=== PATIENT | female | born 1960 | race Caucasian/White ===

== ENCOUNTER 2017-09-19 09:04 | Emergency (ER) | payer BC, MEDICAID, MEDICARE, OTHER ==
[2017-09-19] MEDS: MORPHINE 4 MG/ML 1ML VIAL/SYRINGE (J2270) IM (09:48)
[2017-09-19] MEDS: ONDANSETRON 4 MG ORAL DISINTEGRATING TAB (Q0162 PER 1MG) PO ×2 (09:48→13:01)
[2017-09-19] MEDS: LIDOCAINE 1% MDV 20ML VIAL SC (10:15)
[2017-09-19] MEDS ORDERED: HYDROMORPHONE HCL 0.5 MG/ 0.5 ML SYRINGE (J1170 PER 1) IV (10:45)
[2017-09-19] MEDS: NORCO, ANEXSIA 5/325MG TABLET (HYDROcodone/ACETAMINOPHEN) PO (13:01)
== END 2017-09-19 13:27 | disposition home or self-care (01) ==
LOC: M ED 09:04
DX: S52.531A Colles' fracture of right radius, initial encounter for closed fracture (principal); W01.0XXA Fall on same level from slipping, tripping and stumbling without subsequent striking against object, initial encounter; Y92.098 Other place in other non-institutional residence as the place of occurrence of the external cause; F32.9 Major depressive disorder, single episode, unspecified; F41.9 Anxiety disorder, unspecified; Z87.891 Personal history of nicotine dependence; Z88.2 Allergy status to sulfonamides; Z79.899 Other long term (current) drug therapy
CPT/HCPCS: J2270

== ENCOUNTER 2017-10-02 12:31 | Day surgery (SDC) | payer BC ==
[2017-10-02] MEDS ORDERED: fentaNYL 250 MCG/5 ML INJECTION (J3010) As Ordered (13:54)
[2017-10-02] MEDS ORDERED: ONDANSETRON 4MG/2ML VIAL (J2405) As Ordered (13:54)
[2017-10-02] MEDS ORDERED: PROPOFOL 200 MG/20 ML VIAL As Ordered (13:54)
[2017-10-02] MEDS ORDERED: dexameTHASONE 4 MG/ML 1ML VIAL (J1100) As Ordered (13:54)
[2017-10-02] MEDS ORDERED: LIDOCAINE 2% INJ 100 MG/5 ML SDV (FOR ANES.) As Ordered (13:54)
[2017-10-02] MEDS ORDERED: MIDAZOLAM INJ 2 MG/2 ML VIAL (J2250) As Ordered (13:54)
[2017-10-02] MEDS ORDERED: METOCLOPRAMIDE INJ 10MG/2ML VIAL (J2765) As Ordered (15:34)
[2017-10-02] MEDS ORDERED: HYDROmorphone HCL 2 MG/ML 1ML VIAL (J1170) As Ordered (15:38)
[2017-10-02] MEDS: ceFAZolin 1GM INJ (J0690 PER 500MG) As Ordered (15:39)
[2017-10-02] MEDS ORDERED: ePHEDrine SULFATE 25 MG/5 ML(5MG/ML) SYRINGE As Ordered (15:43)
[2017-10-02] MEDS ORDERED: LR 1,000 ML IV (17:30)
[2017-10-02] MEDS ORDERED: ONDANSETRON 4MG/2ML VIAL (J2405) IV (17:30)
[2017-10-02] MEDS ORDERED: fentaNYL 100 MCG/2 ML INJECTION (J3010) IV (17:30)
[2017-10-02] MEDS: LR 1,000 ML IV (17:30)
[2017-10-02] MEDS ORDERED: NORCO, ANEXSIA 5/325MG TABLET (HYDROcodone/ACETAMINOPHEN) PO (17:30)
[2017-10-02] MEDS ORDERED: MORPHINE 4 MG/ML 1ML VIAL/SYRINGE (J2270) IV (17:30)
[2017-10-02] MEDS: NORCO, ANEXSIA 5/325MG TABLET (HYDROcodone/ACETAMINOPHEN) PO ×2 (17:37→21:10)
[2017-10-03] MEDS: NORCO, ANEXSIA 5/325MG TABLET (HYDROcodone/ACETAMINOPHEN) PO ×2 (03:14→07:25)
[2017-10-03] MEDS: LR 1,000 ML IV (06:00)
== END 2017-10-03 09:22 | disposition home or self-care (01) ==
LOC: M SDC 12:31 → M PED 19:00
DX: S52.591A Other fractures of lower end of right radius, initial encounter for closed fracture (principal); W19.XXXA Unspecified fall, initial encounter; Y93.89 Activity, other specified; Y92.89 Other specified places as the place of occurrence of the external cause; Y99.8 Other external cause status; F41.9 Anxiety disorder, unspecified; E66.9 Obesity, unspecified; Z68.38 Body mass index [BMI] 38.0-38.9, adult; Z88.2 Allergy status to sulfonamides; Z86.59 Personal history of other mental and behavioral disorders; Z87.891 Personal history of nicotine dependence; Z98.84 Bariatric surgery status
CPT/HCPCS: 25607

== ENCOUNTER → 2019-11-09 | Outpatient (REF) | payer BC ==
[~2019-11-09] MED LIST: ESCI20TA; HYDR-3713 PO; HYDR-3715 PO; IBUP200T45 PO; VITA500C24 PO; VITATAB11 PO
[2019-11-09 17:20] LABS: FERRITIN 31 NG/ML (8-252); IRON (FE) 148 UG/DL (50-170)
[2019-11-09 17:26] LABS: FOLATE > 24.0 NG/ML; VITAMIN B12 LEVEL 1019 PG/ML
[2019-11-14 00:07] LABS: VITAMIN A, RETINOL LEVEL 35.4 ug/dL (20.1-62.0); VITAMIN B1 LEVEL WHOLE BLOOD 137.3 nmol/L (66.5-200.0)
== END ==
LOC: M LAB REF 16:23
PROVIDERS: ATTEND Nurse Practitioner Adult Health
DX: Z98.84 Bariatric surgery status (principal)

== ENCOUNTER → 2020-02-21 | Outpatient (CLI) | payer SELFPAY | LOC: M LABSMTC 10:29 | PROVIDERS: ATTEND Pediatrics | DX: Z20.828 Contact with and (suspected) exposure to other viral communicable diseases (principal) ==

== ENCOUNTER → 2020-03-14 | Outpatient (CLI) | payer SELFPAY | LOC: M LABSMTC 09:44 | PROVIDERS: ATTEND Pediatrics | DX: Z20.822 Contact with and (suspected) exposure to COVID-19 (principal) ==

== ENCOUNTER → 2020-04-20 | Outpatient (CLI) | payer BC ==
[~2020-04-20] MED LIST changes: -ESCI20TA; +ESCI20TA16; +FLUO20CA20 PO; +VITMTA PO
== END ==
LOC: M LABSMTC 10:34
PROVIDERS: ATTEND Anesthesiology
DX: Z01.812 Encounter for preprocedural laboratory examination (principal); Z20.822 Contact with and (suspected) exposure to COVID-19

== ENCOUNTER 2020-04-25 07:53 | Day surgery (SDC) | payer BC ==
[~2020-04-25] VITALS: Ht 154.9 cm; Wt 97.5 kg
[~2020-04-25 07:53] MED LIST changes: +LIDOCAINE 2% 100MG/5ML SDV (FOR ANES.) As Ordered ONE; +NS 1,000 ML IV ONE; +propofoL 200 MG/20 ML VIAL As Ordered ONE
[2020-04-25] MEDS ORDERED: ASPI81TA26 PO (08:26)
--- OUTSIDE RECORDS SUMMARY | 2020-04-25 08:58 | CCD | Continuity of Care Document ---
Author Author Bola Anne Organization Unknown Address [address] [place] [address] [address] [place] [address] Phone [phone] Care Team Providers Care Manager Floral Name Role Phone Earnestine Castillo AUTM [phone] Problems Active Problems Provider Date Pure hypercholesterolemia Chapis Edgar FNP Onset: 012 Renal failure syndrome Chapis Edgar FNP Onset: 04/26/2011 Atypical glandular cells on cervical Papanicolaou smear Chapis Clement FNP Onset: 04/26/2011 Asthma without status asthmaticus Chapis Edgar FNP Onset: 04/26/2011 Essential hypertension Chapis Edgar FNP Onset: 04/26/2011 Iron deficiency anemia Chapis Edgar FNP Onset: 04/26/2011 Osteoarthritis Chapis Edgar FNP Onset: 04/26/2011 Lyme disease Chapis Edgar FNP Onset: 04/26/2011 Bariatric Surgery Status hCapis Edgar FNP Onset: 04/26/19 12 Herpes simplex without complication Chapis Edgar FNP Onse t: 04/26/2011 Electrocardiogram abnormal Heide Little D.O. Onset: 04/26/2011 Amenorrhea Chapis Edgar FNP Onset: 04/26/2011 Depressive disorder Chapis Edgar FNP Onset: 04/26/2011 Hyperkalemia Chapis Edgar FNP Onset: 04/26/2011 Social History Type Date Description Comments Sex Unknown ETOH Use Currently consumes alcohol occas ionally Tobacco Use Start: Unknown End: Unknown Patient is a former smoker X 5 YRS 1 PACK A DAY Allergies, Adverse Reactions, Alerts Active Allergies Reaction Severity Comments Date Sulfa Rash Lips Swell 01/18/2008 Medications Active Medications SIG Qnty Indications Ordering Provide r Date Albuterol Sulfate HFA 108(90Base) mcg/Act Aerosol 2 puffs four times a day as needed 25.5gm [facility] CBD Salve apply prn [facility]25 Fluoxetine HCL 20mg Capsules 1 by mouth every day 30caps Earnestine Padron More [facility] 07/26/2019 Multivitamin Adult Chewtabs 2 by mouth bid [facility] 11/02/2018 Vitamin D3 2000Unit Capsules 1 by mouth bid [facility] 11/02/2018 Shingrix 50mcg/0.5ML Suspension Re c administer at pharmacy 1units [facility] 11/02 Calcium 500 +D [id number] Tabl ets 1/2 tab po bid Chapis Edgar FNP 10/13/2015 T83-[id number] 1mg Chewtabs 1 po qd [facility]13/2015 Aspirin 81mg Tablets 1 by mouth every day Chapis Edgar FNP 10/13/2015 Electrodes use as directed for TENS unit 2PKS Chapis Edgar FNP 01/05/2014 TENS Unit to low back as directed for leg pain 1units Chapis Edgar FNP 01/04/2014 Ibuprofen 200mg Capsules 1 po qhs prn Chapis Edgar FNP 11/25/2011 Immunizations CPT Code Status Date Vaccine Lot # U-[id number] Given 11/09/2019 Influenza,Unspecified 61553 Given 12/30/2018 Shingrix Zoster Vaccine (HZV), Recombinant, Subunit, Adjuvanted 01942 Given 02/05/2010 Influenza Virus Vaccine [id number] Refused 12/24/2010 Fluvirin Virus Vaccine Vital Signs Date Vital Result Comment 02/08/2020 7:48am BP Systolic 130 mmHg BP Diastolic 84 mmHg Heart Rate 82 /min Height 61 inches 5'1" Weight 216.00 lb O2 % BldC Oximetry 98 % BMI (Body Mass Index) 40.8 kg/m2 11/09/2019 8:03am BP Systolic 124 mmHg BP Diastolic 78 mmHg Heart Rate 66 /min Height 61 inches 5'1" Weight 215.00 lb O2 % BldC Oximetry 95 % BMI (Body Mass Index) 40.6 kg/m2 Results Test Acquired Date Facility Test Result H/L Range Note Pap HPV High Risk 02/08/2020 [facility] [place] Diagnosis: See Comment: 1 Specimen adequacy: See Comment: 2 Clinician provided Icd10: See Comment: 3 Performed by: See Comment: 4 . . Note: See Comment: 5 Test Methodology: See Comment: 6 HPV, high-risk Negative Negative 7 Laboratory test finding 02/08/2020 [facility] [place] PDF [id number] SEE IMAGE Laboratory test finding 11/09/2019 [facility] [address] [place] [address] [phone] Vitamin A, Retinol Level 35.4 g/dL Normal 20.1-6 2.0 8 Vitamin B1 Level Whole Blood 137.3 nmol/L Normal 66.5-200.0 9 Iron (Fe) 148 g/dL Normal 50-170 Ferritin 31 NG/ML Normal 8-252 Vitamin B12 & Folate 11/09/2019 [facility] [address] [place] [address] [phone] Vitamin B12 Level 1019 pg/mL Normal 10 Folate > 24.0 NG/ML Normal 11 Laboratory test finding 11/09/2019 [place] [facility] chirstina garcia Product Marketing Specialist: Dr Pillo [place] [id number] [phone] Thyroid Stimulating Hormone 4.58 uIU/mL High 0.3 6 - 3.74 Laboratory test finding 11/09/2019 [place] [facility] christina garcia Product Marketing Specialist: Dr Pillo [place] [id number] [phone] T4 Free 0.91 ng/dL 0.76 - 1.46 A1c 11/09/2019 [place] christina Marshall Product Marketing Specialist: [place] [address] [phone] Hba1c 5.7 g/dL High 4.8 - 5.6 12 Est Avg Glucose 117 mg/dL High 60 - 110 Complete Blood Count 11/09/2019 [place] [facility] Product Marketing Specialist: [place] [address] [phone] WBC 4.1 x10*3/UL 4.1 - 10.9 RBC 4.48 x10*6/UL 4.20 - 6.30 Hemoglobin 12.8 g/dL 12.0 - 18.0 Hematocrit 37.6 % 37.0 - 51.0 MCV 84.0 fL 80.0 - 97.0 MCH 28.7 pg 26.0 - 32.0 MCHC 34.1 g/dL 31.0 - 38.0 RDW 12.9 % 11.6 - 13.7 PLT 162 x10*3/UL 140 - 440 MPV 10.1 FL 7.8 - 11.0 Lymph % 37.1 % 10.0 - 58.5 Mid % 7.2 % 1.7 - 9.3 Neut % 55.7 % 37.0 - 92.0 Lymph # 1.5 x10*3/UL 0.6 - 4.1 Mid # 0.3 x10*3/UL 0.1 - 0.6 Neut # 2.3 x10*3/UL 2.0 - 7.8 Comprehensive Chem Profile 11/09/2019 [facility] Product Marketing Specialist: [place] [address] [phone] Glucose 103 mg/dL High 74 - 99 13 BUN 13 mg/dL 7 - 18 Creatinine 0.8 mg/dL 0.6 - 1.3 Sodium 143 mEq/L 136 - 145 Potassium 3.8 mEq/L 3.5 - 5.1 Chloride 104 mEq/L 98 - 107 Carbon Dioxide 29 mEq/L 21 - 32 Calcium 8.6 mg/dL 8.5 - 10.1 Alk. Phosphatase 93 mg/dL 46 - 116 Total Bilirubin 0.5 mg/dL 0.2 - 1.0 Ast (Sgot) 20 U/L 15 - 37 Alt (SGPT) 21 U/L 12 - 78 Albumin 3.5 g/dL 3.4 - 5.0 Total Protein 6.7 g/dL 6.4 - 8.2 A/G Ratio 1.09 CALC 1.00 - 1.90 GFR >= 60 mL/min >60 GFR >= 60 mL/min >60 14 Lipid Profile 11/09/2019 [facility] Product Marketing Specialist: [place] [address] [phone] Cholesterol 234 mg/dL High 131 - 200 Triglycerides 92 mg/dL 30 - 150 HDL Cholesterol 100 mg/dL High 35 - 60 LDL (Calculated) 116 CALC 50 - 159 Laboratory test finding 11/09/2019 [place] [facility] Product Marketing Specialist: [place] [address] [phone] Vitamin D 25-Hydroxy 33.8 24.0 - 80.0 15 1 NEGATIVE FOR INTRAEPITHELIAL LESION OR MALIGNANCY. 2 Satisfactory for evaluation. Endocervical and/or squamous metaplastic cells (endocervical component) are present. 3 N95.9 4 Bela Houser Cytotechnolo wade (ASCP) 5 The Pap smear is a screening test designed to aid in the detection of premalignant and malignant conditions of the uterine cervix. It is not a diagnostic procedure and should not be used as the sole means of detecting cervical cancer. Both false-positive and false-negative reports do occur. 6 This liquid based ThinPrep(R ) pap test was screened with the use of an image guided system. 7 This nucleic acid amplificat ion high-risk HPV test detects thirteen high-risk types (16,18,31,33,35,39,45,51,52,56,58,59,68) without differentiation. EFFECTIVE MARCH 13, 2020 THIS TEST WILL BE MADE NON-ORDERABLE. SEE [facility] DIRECTORY OF SERVICES FOR ALTERNATIVES TO THE HIGH RISK HPV TEST. ANY PROFILE THAT INCLUDES THIS TEST WILL ALSO BE MADE NON-ORDERABLE. 8 Reference intervals for mora min A determined from [facility] internal studies. Individuals with vitamin A less than 20 ug/dL are considered vitamin A deficient and those with serum concentrations less than 10 ug/dL are considered severely deficient. . This test was developed and its performance characteristics determined by [facility]. It has not been cleared or approved by the Food and Drug Administration. 9 Performed at: [address] [id number] Product Marketing Specialist: Duglas Easton MD, Phone: [phone] VITAMIN B12 NORMAL RANGE NORMAL 247 - 911 PG/ML INDETERMINATE 211 - 246 PG/ML DEFICIENT LESS THAN 211 PG/ML 11 FOLATE NORMAL RANGE NORMAL GREATER THAN 5.4 NG/ML INDETERMINATE 3.4-5.4 NG/ML DEFICIENT LESS THAN 3.4 NG/ML 12 Lab Result Notes: Pre-Diabetes 5.7 - 6.4 % Diabetes = or > 6.5% 13 100-125 mg/dL PRE-DIABET ES/FASTING >126 mg/dL DIABETES/FASTING 14 CHRONIC KIDNEY DISEASE STAGI NG PER NKF STAGE I & II GFR >= 60 NORMAL TO MILDLY DECREASED STAGE III GFR 30-59 MODERATELY DECREASED STAGE IV GFR 15-29 SEVERELY DECREASED STAGE V GFR <15 VERY LITTLE GFR LEFT ESRD GFR <15 ON BLEACH BOILER PACKER 15 This test was performed Embrane Vitamin D immunoassay kit. Values obtained with different assay methods should not be used interchangeably. Procedures Date Code Description Status 12/14/2019 [id number] Mammogram Completed 11/24/2018 [id number] Mammogram Completed 11/18/2017 [id number] Bone Mineral Density Test Comple elsa 11/18/2017 [id number] Mammogram Completed 12/22/2013 [id number] Mammogram Completed 10/29/2010 [id number] Colonoscopy Completed 05/04/2008 [id number] Mammogram Completed Medical Devices Description No Information Available Encounters Type Date Location Provider Dx Diagnosis Office Visit 02/08/2020 8:00a [facility] 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 Earnestine Freed ne, BAKER PASTRY Z00.00 Encntr for general adult medical exam w/ o abnormal findings I10 Essential (primary) hyperten wei F34.1 Dysthymic disorder F41.9 Anxiety disorder, unspecifie d R73.03 Prediabetes E78.00 Pure hypercholesterolemia, u nspecified J45.20 Mild intermittent asthma, un complicated E66.01 Morbid (severe) obesity due to excess calories Z68.41 Body mass index (BMI) 40.0-4 4.9, adult Z98.84 Bariatric surgery status E55.9 Vitamin D deficiency, unspec ified Assessments Date Code Description Provider 02/08/2020 Z01.419 Encounter for gyneco logical examination (general) (routine) without abnormal findings Earnestine Gagnon [facility] 02/08/2020 Z12.72 Encounter for screening for john gnant neoplasm of vagina Earnestine Gagnon [facility] 02/08/2020 I10 Essential (primary) hypertension Earnestine Gagnon [facility] 02/08/2020 R73.03 Prediabetes Earnestine Gagnon, [facility] 11/09/2019 Z00.00 Encounter for genera l adult medical examination without abnormal findings Earnestine Gagnon [facility] 11/09/2019 I10 Essential (primary) hypertension Earnestine Gagnon, [facility] 11/09/2019 F34.1 Dysthymic disorder Earnestine Gagnon [facility] 11/09/2019 F41.9 Anxiety disorder, unspecified An n Nereida Aguero, [facility] 11/09/2019 R73.03 Prediabetes Earnestine Gagnon, [facility] 11/09/2019 E78.00 Pure hypercholesterolemia, unspe cified Earnestine Gagnon [facility] 11/09/2019 J45.20 Mild intermittent asthma, uncomp licated Earnestine Gagnon, [facility] 11/09/2019 E66.01 Morbid (severe) obesity due to e xcess calories Earnestine Gagnon, [facility] 11/09/2019 Z68.41 Body mass index (BMI) 40.0-44.9, adult Earnestine Gagnon, [facility] 11/09/2019 Z98.84 Bariatric surgery status Earnestine Gagnon [facility] 11/09/2019 E55.9 Vitamin D deficiency, unspecifie d BORIS Anne Plan of Treatment Future Appointment(s):* 05/16/2020 8:00 am - BORIS Anne at [facility] * 11/14/2020 8:00 am - BORIS Anne at [facility] 02/08/2020 - BORIS Anne* Z01.419 Encounter for gynecological examination (general) (routine) without abnormal findings * Z12.72 Encounter for screening for malignant neoplasm of vagina * I10 Essential (primary) hypertension* Comments:* controlled without medications * Recommendations:* Recommend you eat 4-5 servings of fruits and vegetables daily. Also exercise 30 minutes daily. * R73.03 Prediabetes* Comments:* A1C obtained in November, reviewed and is 5.7 * All * Referral:* [facility] * Shay Cline MD, Gastroenterology Functional Status Description No Information Available Mental Status Description No Information Available Referrals Refer to Dr Reason for Referral Status Appt Date [facility] CARDIAC ECHO WITH DOPPLER DX: MURMUR S ent [address] [place] [address] [place] [address] [phone] Shay Cline MD CONSULT FOR SCREENING COLONOSCOPY Pat[place]ohn t Notified 04/06/2020 [address] [facility] [address] [phone]
--- OUTSIDE RECORDS SUMMARY | 2020-04-25 08:59 | CCD ---
Continuity of Care Document (CCD) Created on: 04/12/2020 Bola Gould External Reference #: [id number] : [id number] Sex: Female Author Author Bola CLINE M.D. Organization Unknown Address [address] [place] [address] Phone [phone] Care Team Providers Care Audience Coordinator Name Role Phone Earnestine Castillo AUTM [phone] Problems Active Problems Provider Date Screening for malignant neoplasm of colon Shay chapa M.D. Onset: 04/04/2016 Social History Type Date Description Comments Sex Unknown ETOH Use Occasionally Tobacco Use Start: Unknown Patient has never smoked Allergies, Adverse Reactions, Alerts Active Allergies Reaction Severity Comments Date Sulfa 04/04/2016 Medications Active Medications SIG Qnty Indications Ordering Provide r Date Sutab [id number] Tablets as directed 1box Shay Cline M.D. 04/11/2020 Fluoxetine HCL 20mg Capsules Take 1 Capsule By Mouth Once Daily Unknown Aspirin Ec Low Dose 81mg Tablets DR Unknown Multiple Vitamin Tablets Unknown Vitamin B-Complex Tablets Unknown Vitamin D 50mcg (2000 Ut) Capsules Unknown Vitamin C 500mg Capsules Unknown Immunizations Description No Information Available Vital Signs Date Vital Result Comment 04/11/2020 11:39am Height 61 inches 5'1" Weight 218.00 lb BP Systolic 136 mmHg BP Diastolic 86 mmHg Heart Rate 81 /min BMI (Body Mass Index) 41.2 kg/m2 Weight 98.885 kg Body Temperature 96.6 F 04/04/2016 1:26pm Height 61 inches 5'1" Weight 179.00 lb BP Systolic 123 mmHg BP Diastolic 72 mmHg Heart Rate 71 /min BMI (Body Mass Index) 33.8 kg/m2 Weight 81.194 kg Results Description No Information Available Procedures Description No Information Available Medical Devices Description No Information Available Encounters Type Date Location Provider Dx Diagnosis Office Visit 04/11/2020 11:00a Main Office Shay Cline M.D. Z 12.11 Encounter for screening for malignant neoplasm of colon Assessments Date Code Description Provider 04/11/2020 Z12.11 Encounter for screening for john gnant neoplasm of colon Shay Cline M.D. Plan of Treatment Future Appointment(s):* 04/18/2020 7:15 am - Jennifer at Main Office * 04/25/2020 10:00 am - Shay Cline M.D. at Main Office 04/11/2020 - Shay Cline M.D.* Z12.11 Encounter for screening for malignant neoplasm of colon* Comments:* 59 yo wf who presents for a screening colonoscopy. No c/o abdominal pain, weight loss, change in bowel habits, or rectal bleeding. No family h/o colon cancer. No h/o chest pain, or sob. Last scope was in 2010. Plan: 1.Schedule patient for a colonoscopy.2.Informed consent given to the patient.3.Pt. advised to stop aspirin,plavix, and anticoagulants at least 3 to 7 days prior to the procedure. Functional Status Description No Information Available Mental Status Description No Information Available Referrals Description No Information Available
--- OUTSIDE RECORDS SUMMARY | 2020-04-25 09:00 | CCD | Continuity of Care Document ---
Author Author Bola CLINE M.D. Organization Unknown Address [address] [place] [address] Phone [phone] Care Team Providers Care Cras Name Role Phone Earnestine Castillo AUTM [phone] Problems Active Problems Provider Date Screening for malignant neoplasm of colon Shay chapa M.D. Onset: 04/04/2016 Social History Type Date Description Comments Sex Unknown ETOH Use Occasionally Tobacco Use Start: Unknown Patient has never smoked Allergies, Adverse Reactions, Alerts Active Allergies Reaction Severity Comments Date Sulfa 04/04/2016 Medications Active Medications SIG Qnty Indications Ordering Provide r Date Sutab [id number] Tablets as directed 1box Shay Cline M.D. [...] Medical Devices Description No Information Available Encounters Description No Information Available Assessments Date Code Description Provider 04/11/2020 Z12.11 [...]
--- OUTSIDE RECORDS SUMMARY | 2020-04-25 09:01 | CCD | Continuity of Care Document ---
Author Author Bola Anne Organization Unknown Address [address] [place] [address] [address] [place] [address] Phone [phone] Care Team Providers Care Trackman Name Role Phone Earnestine Castillo AUTM [phone] Problems Active Problems Provider Date Pure hypercholesterolemia Chapis Edgar FNP Onset: 012 Renal failure syndrome Chapis Edgar FNP Onset: 04/26/2011 Atypical glandular cells on cervical Papanicolaou smear Chapis Clement FNP Onset: 04/26/2011 Asthma without status asthmaticus Chapis Edgar FNP Onset: 04/26/2011 Essential hypertension Chapis Egdar FNP Onset: 04/26/2011 Iron deficiency anemia Chapis Edgar FNP Onset: 04/26/2011 Osteoarthritis Chapis Edgar FNP Onset: 04/26/2011 Lyme disease Chapis Edgar FNP Onset: 04/26/2011 Bariatric Surgery Status Chapis Edgar FNP Onset: 04/26/19 12 Herpes simplex [...] times a day as needed [facility] Salve apply prn [facility] Fluoxetine HCL 20mg Capsules 1 by mouth every day 30caps Earnestine Padron More [facility] 07/26/2019 Multivitamin Adult Chewtabs 2 by mouth bid [facility]2018 Vitamin D3 2000Unit Capsules 1 by mouth bid [facility]2018 Shingrix 50mcg/0.5ML Suspension Re c administer at pharmacy 1units [facility]02 Calcium 500 +D [id number] Tabl ets 1/2 tab po bid [facility] 10/13/2015 [id number] 1mg Chewtabs 1 po qd [facility]2015 Aspirin 81mg Tablets 1 by mouth every day [facility]2015 Electrodes use as directed for TENS unit 2PKS Chapis Edgar FNP 01/05/2014 TENS Unit to low back as directed for leg pain 1units [facility]/04[facility]2014 Ibuprofen 200mg Capsules 1 po qhs prn Chapis Edgar FNP 11/25/2011 Immunizations CPT Code Status Date Vaccine Lot # U-Flu Given 11/09/2019 Influenza,Unspecified 37737 Given 12/30/2018 Shingrix Zoster Vaccine (HZV), Recombinant, Subunit, Adjuvanted 16980 Given 02/05/2010 Influenza Virus Vaccine [id number] Refused [...] Date Facility Test Result H/L Range Note Laboratory test finding 11/09/2019 [facility] [address] [place] [address] [phone] Vitamin A, Retinol Level 35.4 g/dL Normal 20.1-6 2.0 1 Vitamin B1 Level Whole Blood 137.3 nmol/L Normal 66.5-200.0 2 Iron (Fe) 148 g/dL Normal 50-170 Ferritin 31 NG/ML Normal 8-252 Vitamin B12 & Folate 11/09/2019 [facility] [address] [place] [address] [phone] Vitamin B12 Level 1019 pg/mL Normal 3 Folate > 24.0 NG/ML Normal 4 Laboratory test finding 11/09/2019 [facility] g[facility] Virtualization Architect: [place] [address] [phone] Thyroid Stimulating Hormone 4.58 uIU/mL High 0.3 6 - 3.74 Laboratory test finding 11/09/2019 [facility] christina garcia Virtualization Architect: Dr Pillo Elliott [place] [id number] [phone] T4 Free 0.91 ng/dL 0.76 - 1.46 A1c 11/09/2019 [facility] Virtualization Architect: [place] [address] [phone] Hba1c 5.7 g/dL High 4.8 - 5.6 5 Est Avg Glucose 117 mg/dL High 60 - 110 Complete Blood Count 11/09/2019 [facility] Virtualization Architect: [place] [address] [phone] WBC 4.1 x10*3/UL 4.1 - 10.9 RBC [...] 2.0 - 7.8 Comprehensive Chem Profile 11/09/2019 [facility] Virtualization Architect: [place] [address] [phone] Glucose 103 mg/dL High 74 - 99 6 BUN 13 mg/dL 7 - 18 Creatinine [...] mL/min >60 GFR >= 60 mL/min >60 7 Lipid Profile 11/09/2019 [facility] , Virtualization Architect: Dr [place]illo [place] [address] [phone] Cholesterol 234 mg/dL High 131 - 200 Triglycerides 92 mg/dL 30 - 150 HDL Cholesterol 100 mg/dL High 35 - 60 LDL (Calculated) 116 CALC 50 - 159 Laboratory test finding 11/09/2019 [facility] Virtualization Architect: [place] [address] [phone] Vitamin D 25-Hydroxy 33.8 24.0 - 80.0 8 1 Reference intervals for mora min A determined from [facility] internal studies. Individuals with vitamin A less than 20 ug/dL are considered vitamin A deficient and those with serum concentrations less than 10 ug/dL are considered severely deficient. . This test was developed and its performance characteristics determined by [facility]. It has not been cleared or approved by the Food and Drug Administration. 2 Performed at: [address] [id number] Virtualization Architect: Duglas Easton MD, Phone: [phone] VITAMIN B12 NORMAL RANGE NORMAL 247 - 911 PG/ML INDETERMINATE 211 - 246 PG/ML DEFICIENT LESS THAN 211 PG/ML 4 FOLATE NORMAL RANGE NORMAL GREATER THAN 5.4 NG/ML INDETERMINATE 3.4-5.4 NG/ML DEFICIENT LESS THAN 3.4 NG/ML 5 Lab Result Notes: Pre-Diabetes 5.7 - 6.4 % Diabetes = or > 6.5% 6 100-125 mg/dL PRE-DIABET ES/FASTING >126 mg/dL DIABETES/FASTING 7 CHRONIC KIDNEY DISEASE STAGI NG PER NKF STAGE I & II GFR >= 60 NORMAL TO MILDLY DECREASED STAGE III GFR 30-59 MODERATELY DECREASED STAGE IV GFR 15-29 SEVERELY DECREASED STAGE V GFR <15 VERY LITTLE GFR LEFT ESRD GFR <15 ON PHOTOENGRAVER APPRENTICE 8 This test was performed [employer] GelSight IP Vitamin D immunoassay kit. Values obtained with different assay methods should not be used interchangeably. Procedures Date Code Description Status 12/14/2019 [id number] Mammogram Completed 11/24/2018 [id number] Mammogram Completed 11/18/2017 [id number] Bone Mineral Density Test Comple elsa 11/18/2017 [id number] Mammogram Completed 12/22/2013 [id number] Mammogram Completed 10/29/2010 [id number] Colonoscopy Completed 05/04/2008 [id number] Mammogram Completed Medical Devices Description No Information Available Encounters Type Date Location Provider Dx Diagnosis Office Visit 11/09/2019 8:00a [facility] Earnestine Freed ne, MED SPEC Z00.00 Encntr for general adult medical exam w/ o abnormal findings I10 Essential (primary) hyperten wei F34.1 Dysthymic disorder F41.9 Anxiety disorder, unspecifie d R73.03 Prediabetes E78.00 Pure hypercholesterolemia, u nspecified J45.20 Mild intermittent asthma, un complicated E66.01 Morbid (severe) obesity due to excess calories Z68.41 Body mass index (BMI) 40.0-4 4.9, adult Z98.84 Bariatric surgery status E55.9 Vitamin D deficiency, unspec ified Office Visit 08/17/2019 2:30p [facility] Keren Edgar FNP F34.1 Dysthymic disorder Assessments Date Code Description Provider 11/09/2019 Z00.00 Encounter for genera l adult medical examination without abnormal findings Earnestine Gagnon [facility] 11/09/2019 I10 Essential (primary) hypertension Earnestine Gagnon [facility] 11/09/2019 F34.1 Dysthymic disorder JACQUELYN AnneP 11/09/2019 F41.9 Anxiety disorder, unspecified An n Nereida Aguero, [facility] 11/09/2019 R73.03 Prediabetes Earnestine Gagnon [facility] 11/09/2019 E78.00 Pure hypercholesterolemia, unspe cified Earnestine Gagnon [facility] 11/09/2019 J45.20 Mild intermittent asthma, uncomp licated Earnestine Gagnon [facility] 11/09/2019 E66.01 Morbid (severe) obesity due to e xcess calories Earnestine Gagnon [facility] 11/09/2019 Z68.41 Body mass index (BMI) 40.0-44.9, adult JACQUELYN AnneP 11/09/2019 Z98.84 Bariatric surgery status JACQUELYN AnneP 11/09/2019 E55.9 Vitamin D deficiency, unspecifie d JACQUELYN AnneP 08/17/2019 F34.1 Dysthymic disorder Remberto Edgar FNP Plan of Treatment Future Appointment(s):* 11/14/2020 8:00 am - BORIS Anne at [facility] Functional Status Description No Information Available Mental Status Description No Information Available Referrals Description No Information Available
--- OUTSIDE RECORDS SUMMARY | 2020-04-25 09:02 | CCD ---
Author Author [facility] Organization [facility] Address Unknown Phone Unavailable Care Team Providers Care Dining Service Worker Name Role Phone Aman Cline MD Unavailable Unavailable Aman Cline MD Unavailable Unavailable Aman Cline MD Unavailable Unavailable Aman Cline MD Unavailable Unavailable Aman Cline MD Unavailable Unavailable Aman Cline MD Unavailable Unavailable Aman Cline MD Unavailable Unavailable Aman Cline MD Unavailable Unavailable Aman Cline MD Unavailable Unavailable Aman Cline MD Unavailable Unavailable Aman Cline MD Unavailable Unavailable Aman Cline MD Unavailable Unavailable Aman Cline MD Unavailable Unavailable Aman Cline MD Unavailable Unavailable Aman Cline MD Unavailable Unavailable Aman Cline MD Unavailable Unavailable Aman Cline MD Unavailable Unavailable Aman Cline MD Unavailable Unavailable Aman Cline MD Unavailable Unavailable Aman Cline MD Unavailable Unavailable Aman Cline MD Unavailable Unavailable Aman Cline MD Unavailable Unavailable Aman Cline MD Unavailable Unavailable Aman Cline MD Unavailable Unavailable Aman Cline MD Unavailable Unavailable Aman Cline MD Unavailable Unavailable Aman Cline MD Unavailable Unavailable Aman Cline MD Unavailable Unavailable Aman Cline MD Unavailable Unavailable Aman Cline MD Unavailable Unavailable Aman Cline MD Unavailable Unavailable Aman Cline MD Unavailable Unavailable Aman Cline MD Unavailable Unavailable Aman Cline MD Unavailable Unavailable Aman Cline MD Unavailable Unavailable Aman Cline MD Unavailable Unavailable Aman Cline MD Unavailable Unavailable Aman Cline MD Unavailable Unavailable Aman Cline MD Unavailable Unavailable Aman Cline MD Unavailable Unavailable Aman Cline MD Unavailable Unavailable Aman Cline MD Unavailable Unavailable Aman Cline MD Unavailable Unavailable Aman Cline MD Unavailable Unavailable Aman Cline MD Unavailable Unavailable Aman Cline MD Unavailable Unavailable Aman Cline MD Unavailable Unavailable Aman Cline MD Unavailable Unavailable Aman Cline MD Unavailable Unavailable Aman Cline MD Unavailable Unavailable Jairo Armendariz MD Unavailable Unavailable Jairo Armendariz MD Unavailable Unavailable Jairo Armendariz MD Unavailable Unavailable Jairo Armendariz MD Unavailable Unavailable Jairo Armendariz MD Unavailable Unavailable Jairo Armendariz MD Unavailable Unavailable Jairo Armendariz MD Unavailable Unavailable Jairo Armendariz MD Unavailable Unavailable Jairo Armendariz MD Unavailable Unavailable Jairo Armendariz MD Unavailable Unavailable Jairo Armendariz MD Unavailable Unavailable Jairo Armendariz MD Unavailable Unavailable Jairo Armendariz MD Unavailable Unavailable Jairo Armendariz MD Unavailable Unavailable Jairo Armendariz MD Unavailable Unavailable Jairo Armendariz MD Unavailable Unavailable Jairo Armendariz MD Unavailable Unavailable Jairo Armendariz MD Unavailable Unavailable Jairo Armendariz MD Unavailable Unavailable Jairo Armendariz MD Unavailable Unavailable Jairo Armendariz MD Unavailable Unavailable Jairo Armendariz MD Unavailable Unavailable Jairo Armendariz MD Unavailable Unavailable Jairo Armendariz MD Unavailable Unavailable Jairo Armendariz MD Unavailable Unavailable Jairo Armendariz MD Unavailable Unavailable Jairo Armendariz MD Unavailable Unavailable Jairo Armendariz MD Unavailable Unavailable Jairo Armendariz MD Unavailable Unavailable Jairo Armendariz MD Unavailable Unavailable Jairo Armendariz MD Unavailable Unavailable Jairo Armendariz MD Unavailable Unavailable Jairo Armendariz MD Unavailable Unavailable Jairo Armendariz MD Unavailable Unavailable Jairo Armendariz MD Unavailable Unavailable Jairo Armendariz MD Unavailable Unavailable Jairo Armendariz MD Unavailable Unavailable Jairo Armendariz MD Unavailable Unavailable Jairo Armendariz MD Unavailable Unavailable Jairo Armendariz MD Unavailable Unavailable Jairo Armendariz MD Unavailable Unavailable Jairo Armendariz MD Unavailable Unavailable Jairo Armendariz MD Unavailable Unavailable Jairo Armendariz MD Unavailable Unavailable Jairo Armendariz MD Unavailable Unavailable Jairo Armendariz MD Unavailable Unavailable Jairo Armendariz MD Unavailable Unavailable Jairo Armendariz MD Unavailable Unavailable Jairo Armendariz MD Unavailable Unavailable Jairo Armendariz MD Unavailable Unavailable Jairo Armendariz MD Unavailable Unavailable Jairo Armendariz MD Unavailable Unavailable Jairo Armendariz MD Unavailable Unavailable Jairo Armendariz MD Unavailable Unavailable Jairo Armendariz MD Unavailable Unavailable Jairo Armendariz MD Unavailable Unavailable Jairo Armendariz MD Unavailable Unavailable Jairo Armendariz MD Unavailable Unavailable Herve, Chapis COMMERCIAL ACCOUNT OFFICER Unavailable Unavailable Herve, Chapis COMMERCIAL ACCOUNT OFFICER Unavailable Unavailable Herve, Chapis COMMERCIAL ACCOUNT OFFICER Unavailable Unavailable Herve, Chapis COMMERCIAL ACCOUNT OFFICER Unavailable Unavailable Herve, Chapis COMMERCIAL ACCOUNT OFFICER Unavailable Unavailable Herve, Chapis COMMERCIAL ACCOUNT OFFICER Unavailable Unavailable Herve, Chapis COMMERCIAL ACCOUNT OFFICER Unavailable Unavailable Herve, Chapis COMMERCIAL ACCOUNT OFFICER Unavailable Unavailable Herve, Chapis COMMERCIAL ACCOUNT OFFICER Unavailable Unavailable Herve, Chapis COMMERCIAL ACCOUNT OFFICER Unavailable Unavailable Herve, Chapis COMMERCIAL ACCOUNT OFFICER Unavailable Unavailable Herve, Chapis COMMERCIAL ACCOUNT OFFICER Unavailable Unavailable Herve, Chapis COMMERCIAL ACCOUNT OFFICER Unavailable Unavailable Herve, Chapis COMMERCIAL ACCOUNT OFFICER Unavailable Unavailable Herve, Chapis COMMERCIAL ACCOUNT OFFICER Unavailable Unavailable Herve, Chapis COMMERCIAL ACCOUNT OFFICER Unavailable Unavailable Herve, Chapis COMMERCIAL ACCOUNT OFFICER Unavailable Unavailable Herve, Chapis COMMERCIAL ACCOUNT OFFICER Unavailable Unavailable Herve, Chapis COMMERCIAL ACCOUNT OFFICER Unavailable Unavailable Herve, Chapis COMMERCIAL ACCOUNT OFFICER Unavailable Unavailable Herve, Chapis COMMERCIAL ACCOUNT OFFICER Unavailable Unavailable Herve, Chapis COMMERCIAL ACCOUNT OFFICER Unavailable Unavailable Herve, Chapis COMMERCIAL ACCOUNT OFFICER Unavailable Unavailable Herve, Chapis COMMERCIAL ACCOUNT OFFICER Unavailable Unavailable Herve, Chapis COMMERCIAL ACCOUNT OFFICER Unavailable Unavailable Herve, Chapis COMMERCIAL ACCOUNT OFFICER Unavailable Unavailable Herve, Chapis COMMERCIAL ACCOUNT OFFICER Unavailable Unavailable Herve, Chapis COMMERCIAL ACCOUNT OFFICER Unavailable Unavailable Herve, Chapis COMMERCIAL ACCOUNT OFFICER Unavailable Unavailable Herve, Chapis COMMERCIAL ACCOUNT OFFICER Unavailable Unavailable Herve, Chapis COMMERCIAL ACCOUNT OFFICER Unavailable Unavailable Herve, Chapis COMMERCIAL ACCOUNT OFFICER Unavailable Unavailable Herve, Chapis COMMERCIAL ACCOUNT OFFICER Unavailable Unavailable Herve, Chapis COMMERCIAL ACCOUNT OFFICER Unavailable Unavailable Herve, Chapis COMMERCIAL ACCOUNT OFFICER Unavailable Unavailable Herve, Chapis COMMERCIAL ACCOUNT OFFICER Unavailable Unavailable Herve, Chapis COMMERCIAL ACCOUNT OFFICER Unavailable Unavailable Herve, Chapis COMMERCIAL ACCOUNT OFFICER Unavailable Unavailable Herve, Chapis COMMERCIAL ACCOUNT OFFICER Unavailable Unavailable Herve, Chapis COMMERCIAL ACCOUNT OFFICER Unavailable Unavailable Herve, Chapis COMMERCIAL ACCOUNT OFFICER Unavailable Unavailable Herve, Chapis COMMERCIAL ACCOUNT OFFICER Unavailable Unavailable Herve, Chapis COMMERCIAL ACCOUNT OFFICER Unavailable Unavailable Herve, Chapis COMMERCIAL ACCOUNT OFFICER Unavailable Unavailable Herve, Chapis COMMERCIAL ACCOUNT OFFICER Unavailable Unavailable Herve, Chapis COMMERCIAL ACCOUNT OFFICER Unavailable Unavailable Herve, Chapis COMMERCIAL ACCOUNT OFFICER Unavailable Unavailable Herve, Chapis COMMERCIAL ACCOUNT OFFICER Unavailable Unavailable Herve, Chapis COMMERCIAL ACCOUNT OFFICER Unavailable Unavailable Herve, Chapis COMMERCIAL ACCOUNT OFFICER Unavailable Unavailable Herve, Chapis COMMERCIAL ACCOUNT OFFICER Unavailable Unavailable Herve, Chapis COMMERCIAL ACCOUNT OFFICER Unavailable Unavailable Herve, Chapis COMMERCIAL ACCOUNT OFFICER Unavailable Unavailable LePine, M Earnestine CRANE MECHANIC Unavailable Unavailable LePine, M Earnestine CRANE MECHANIC Unavailable Unavailable LePine, M Earnestine CRANE MECHANIC Unavailable Unavailable LePine, M Earnestine CRANE MECHANIC Unavailable Unavailable LePine, M Earnestine CRANE MECHANIC Unavailable Unavailable LePine, M Earnestine CRANE MECHANIC Unavailable Unavailable LePine, M Earnestine CRANE MECHANIC Unavailable Unavailable LePine, M Earnestine CRANE MECHANIC Unavailable Unavailable LePine, M Earnestine CRANE MECHANIC Unavailable Unavailable LePine, M Earnestine CRANE MECHANIC Unavailable Unavailable LePine, M Earnestine CRANE MECHANIC Unavailable Unavailable LePine, M Earnestine CRANE MECHANIC Unavailable Unavailable LePine, M Earnestine CRANE MECHANIC Unavailable Unavailable LePine, M Earnestine CRANE MECHANIC Unavailable Unavailable LePine, M Earnestine CRANE MECHANIC Unavailable Unavailable LePine, M Earnestine CRANE MECHANIC Unavailable Unavailable LePine, M Earnestine CRANE MECHANIC Unavailable Unavailable LePine, M Earnestine CRANE MECHANIC Unavailable Unavailable LePine, M Earnestine CRANE MECHANIC Unavailable Unavailable LePine, M Earnestine CRANE MECHANIC Unavailable Unavailable LePine, M Earnestine CRANE MECHANIC Unavailable Unavailable LePine, M Earnestine CRANE MECHANIC Unavailable Unavailable LePine, M Earnestine CRANE MECHANIC Unavailable Unavailable LePine, M Earnestine CRANE MECHANIC Unavailable Unavailable LePine, M Earnestine CRANE MECHANIC Unavailable Unavailable LePine, M Earnestine CRANE MECHANIC Unavailable Unavailable LePine, M Earnestine CRANE MECHANIC Unavailable Unavailable LePine, M Earnestine CRANE MECHANIC Unavailable Unavailable LePine, M Earnestine CRANE MECHANIC Unavailable Unavailable LePine, M Earnestine CRANE MECHANIC Unavailable Unavailable LePine, M Earnestine CRANE MECHANIC Unavailable Unavailable LePine, M Earnestine CRANE MECHANIC Unavailable Unavailable LePine, M Earnestine CRANE MECHANIC Unavailable Unavailable LePine, M Earnestine CRANE MECHANIC Unavailable Unavailable LePine, M Earnestine CRANE MECHANIC Unavailable Unavailable LePine, M Earnestine CRANE MECHANIC Unavailable Unavailable LePine, M Earnestine CRANE MECHANIC Unavailable Unavailable LePine, M Earnestine CRANE MECHANIC Unavailable Unavailable LePine, M Earnestine CRANE MECHANIC Unavailable Unavailable LePine, M Earnestine CRANE MECHANIC Unavailable Unavailable LePine, M Earnestine CRANE MECHANIC Unavailable Unavailable LePine, M Earnestine CRANE MECHANIC Unavailable Unavailable LePine, M Earnestine CRANE MECHANIC Unavailable Unavailable LePine, M Earnestine CRANE MECHANIC Unavailable Unavailable LePine, M Earnestine CRANE MECHANIC Unavailable Unavailable LePine, M Earnestine CRANE MECHANIC Unavailable Unavailable LePine, M Earnestine CRANE MECHANIC Unavailable Unavailable LePine, M Earnestine CRANE MECHANIC Unavailable Unavailable LePine, M Earnestine CRANE MECHANIC Unavailable Unavailable LePine, M Earnestine CRANE MECHANIC Unavailable Unavailable LePine, M Earnestine CRANE MECHANIC Unavailable Unavailable LePine, M Earnestine CRANE MECHANIC Unavailable Unavailable LePine, M Earnestine CRANE MECHANIC Unavailable Unavailable LePine, M Earnestine CRANE MECHANIC Unavailable Unavailable LePine, M Earnestine CRANE MECHANIC Unavailable Unavailable LePine, M Earnestine CRANE MECHANIC Unavailable Unavailable Re-disclosure Warning The records that you are about to access may contain information from federally-assisted alcohol or drug abuse programs. If such information is present, then the following federally mandated warning applies: This information has been disclosed to you from records protected by federal confidentiality rules (42 CFR part 2). The federal rules prohibit you from making any further disclosure of this information unless further disclosure is expressly permitted by the written consent of the person to whom it pertains or as otherwise permitted by 42 CFR part 2. A general authorization for the release of medical or other information is NOT sufficient for this purpose. The Federal rules restrict any use of the information to criminally investigate or prosecute any alcohol or drug abuse patient.The records that you are about to access may contain highly sensitive health information, the redisclosure of which is protected by Article 27-F of the [facility] Public Health law. If you continue you may have access to information: Regarding HIV / AIDS; Provided by facilities licensed or operated by the [facility] Office of Mental Health; or Provided by the [facility] Office for People With Developmental Disabilities. If such information is present, then the following [facility] mandated warning applies: This information has been disclosed to you from confidential records which are protected by state law. State law prohibits you from making any further disclosure of this information without the specific written consent of the person to whom it pertains, or as otherwise permitted by law. Any unauthorized further disclosure in violation of state law may result in a fine or halfway sentence or both. A general authorization for the release of medical or other information is NOT sufficient authorization for further disc losure. Family History Family Member Name Family Member Gender Family Member Status Date o f Status Description Data Source(s) Unknown Unknown Problem [facility] ([facility]) Unknown Male Problem [facility] ([facility]) Unknown Male Problem [facility] ([facility]) Unknown Male Problem [facility] ([facility]) Encounters Encounter Providers Location Date Indications Data Source(s ) Outpatient STEPHANIE 04/18/2020 07:15:46 PM [facility] Outpatient Referrer: aJiro STARR 11/2020 12:00:00 AM EST [facility] Office Visit Attender: Shay Cline MD Main Office 10:00:00 AM EST MEDENT ([facility] ) Outpatient Attender: Earnestine Knight 02/07 07:00:00 AM EST [facility] ([facility] ) Outpatient Attender: Earnestine Knight 11/08 08:00:00 AM EDT [facility] ([facility] ) Outpatient Attender: Chapis Knight 0 08/17/2019 02:30:00 PM EDT [facility] ([facility] ) Outpatient Attender: Chapis Knight 0 07/26/2019 01:30:00 PM EDT MED[facility] ([facility] ) Outpatient Attender: Chapis Knight 0 06/29/2019 01:15:00 PM EDT MED[facility] ([facility] ) Outpatient Attender: Chapis Knight 0 05/04/2019 07:45:00 AM EST [facility] ([facility] ) Immunizations Vaccine Date Status Description Data Source(s) This CVX code allows reporting of a vacc ination when formulation is unknown (for example, when recording a Influenza vaccination when noted on a vaccination card) 11/09/2019 03:57:00 PM EDT completed MEDEN T ([facility]) Medications Medication Brand Name Start Date Product Form Dose Route Admi nistrative Instructions Pharmacy Instructions Status Indications Reaction Description Data Source(s) Sutab Sutab 04/11/2020 12:00:00 AM EST active MEDENT ([facility]) 60 ACTUAT Albuterol 0.09 MG/ACTUAT Metered Dose Inhaler Albu terol Sulfate HFA 07/27/2019 12:00:00 AM EDT RESPIRATORY active MED[facility] ([facility]) CBD Salve 07/26/2019 12:00:00 AM EDT active [facility] ([facility]) Fluoxetine 20 MG Oral Capsule Fluoxetine HCL 07/26/2019 12:00:00 AM E DT ORAL active MEDENT ([facility]) Sertraline 100 MG Oral Tablet Sertraline HCL 06/29/2019 12:00:00 AM E DT ORAL completed MED[facility] ([facility]) Sertraline 50 MG Oral Tablet Sertraline HCL 05/04/2019 12:00:00 AM EST ORAL completed MEDENT ([facility]) Insurance Providers Payer name Policy type / Coverage type Policy ID Covered libertarian ID Covered libertarian's relationship to maradiaga Policy [place] Plan Information BCBS FEDERAL EMPLOYEE PROGRAM [id number] [place] BCBS [id number] Spo [id number] SELF PAY ONLY [id number] SP [id number] BS [place] FEDERAL B [id number] P [id number] BCBS Federal Plan Commercial [id number] Family Dependent [id number] BCBS Federal Plan Commercial [id number] Family Dependent [id number] [place] Medig[place] Part B [id number] Family Dependent [id number] [place] Medigap Part B [id number] Family Depe ndent [id number] Medicaid Medigap Part B [id number] Self [id number] Federal BC/BS Commercial [id number] Family Dependent [id number] Aetna Medicare Medigap Part B [id number] Family Dependent [id number] 02 [facility] Community Mickey/Ess PLS Commercial [id number] Self [id number] [id number] Medicare Community [place] Commercial [id number] Self [id number] Cigna Healthcare Medigap Part B [id number] Family Dependent [id number] [place] Medigap Part B [id number] Family Depe ndent [id number] BS [place] Medigap Part B [id number] Self [id number] BS [place] Medigap Part B [id number] Self [id number] BS [place] Trad/[place] Medigap Part B [id number] Self [id number] BS [place] Medigap Part B [id number] Family Dep endent [id number] [facility] Mickey/Ess PLS Commercial [id number] Self [id number] [place] Medigap Part B [id number] Self [id number] [place] Medigap Part B [id number] Self [id number] BS Fed Plan Commercial [id number] Family Dependent [id number] [place] Medigap Part B [id number] Family Depend ent [id number] [place] Medigap Part B [id number] Self [id number] [place] Medigap Part B [id number] Self [id number] BS Fed Plan Commercial [id number] Family Dependent [id number] [place] Medigap Part B [id number] Self [id number] [place] Medigap Part B [id number] Self [id number] BS Fed Plan Commercial [id number] Family Dependent [id number] [place] Medigap Part B [id number] Self [id number] [place] Medigap Part B [id number] Self [id number] BS Fed Plan Commercial [id number] Family Dependent [id number] [place] Medigap Part B [id number] Self [id number] BS [place] Medigap Part B [id number] Self [id number] BS Fed Plan Commercial [id number] Family Dependent [id number] [place] Medigap Part B [id number] Self [id number] [place] Medigap Part B [id number] Self [id number] BS Fed Plan Commercial [id number] Family Dependent [id number] [place] Medig[place] Part B [id number] Family Dependent [id number] BS [place] Trad/[place] Medigap Part B [id number] Family Depe ndent [id number] Medicaid Medigap Part B [id number] Self [id number] Federal BC/BS Commercial [id number] Family Dependent [id number] [place] Medigap Part B [id number] Self [id number] BS [place] Medigap Part B [id number] Self [id number] BS Fed Plan Commercial [id number] Family Dependent [id number] [place] Medigap Part B [id number] Self [id number] BS [place] Medigap Part B [id number] Self [id number] BS Fed Plan Commercial [id number] Family Dependent [id number] BCBS FEDERAL EMPLOYEE PROGRAM [id number] [place] Medigap Part B [id number] Self [id number] BS [place] Medigap Part B [id number] Self [id number] BS Fed Plan Commercial [id number] Family Dependent [id number] BS [place] Medigap Part B [id number] Self [id number] BS [place] Medigap Part B [id number] Self [id number] BS Fed Plan Commercial [id number] Family Dependent [id number] [place] Medigap Part B [id number] Self [id number] BS [place] Medigap Part B [id number] Self [id number] BS Fed Plan Commercial [id number] Family Dependent [id number] BC [place] FEDERAL B [id number] P [id number] MEDICAID [id number] SP [id number] [facility] COMMUNITY PLAN MCDHMO [id number] SP [id number] MEDICARE COMPLETE [id number] SP [id number] [place] Medig[place] Part B [id number] Family Dependent [id number] BS [place] Trad/[place] Commercial [id number] Family Dependen t [id number] Medicaid Medigap Part B [id number] Self [id number] Federal BC/BS Commercial [id number] Family Dependent [id number] [place] Medig[place] Part B [id number] Family Dependent [id number] BS [place] Trad/MX Commercial [id number] Family Dependen t [id number] Medicaid Medigap Part B [id number] Self [id number] Federal BC/BS Commercial [id number] Family Dependent [id number] [place] Medig[place] Part B [id number] Family Dependent [id number] BS [place] Trad/[place] Commercial [id number] Family Dependen t [id number] Medicaid Medigap Part B [id number] Self [id number] Federal BC/BS Commercial [id number] Family Dependent [id number] [place] Medig[place] Part B [id number] Family Dependent [id number] BS [place] Trad/[place] Commercial [id number] Family Dependen t [id number] Aetna Medigap Part B [id number] Family Dependent [id number] Medicaid Medigap Part B [id number] Self [id number] [facility] Community Mickey/Ess PLS Commercial [id number] Self [id number] [facility]/Community [facility] [employer] (HMO) [id number] Self [id number] Medicaid Medigap Part B 1 1 Self 1 1 [facility] Community Mickey/Ess PLS Commercial [id number] Self [id number] [facility] Medicare Community [address] Commercial [id number] Self [id number] BS [place] Medigap Part B [id number] Family Dependent [id number] BS [place] Trad/MX Commercial 802 Family Dependent 802 [employer] Medigap Part B Family Dependent BS [place] Trad/MX Commercial 802 Family Dependent 802 BS [place] Trad/MX Commercial 802 Self 802 BS [place] Trad/[place] Commercial 802 Self 802 BS [place] Trad/MX Commercial 802 Self 802 BS [place]ad/[place] Medigap Part B [id number] Family Depend ent [id number] Aetna Commercial Family Dependent [facility] Medicaid Medicaid Self MEDICAID HEALTH MAINTENANCE ORGANIZATION HEA [id number] SELF PAY ONLY UNAVAILABLE UNAV AILABLE AET HEALTH SEIU YEIMI O [id number] S [id number] AETNA [facility] [place] [id number] HU2 [id number] BCBS [place] PPO [place]/307 [id number] HU2 [id number] EXCELLUS BCBS P [id number] P [id number] BCBS [place] PPO 302/307 [id number] SP [id number] Surgeries/Procedures Procedure Description Date Indications Data Source(s) Mammogram 12/14/2019 12:00:00 AM JONA HERZOG ([facility]) Results ID Date Data Source [id number] 04/20/2020 10:00:00 AM EST [facility] Name Value Range Interpretation Code Description Data Paula rce(s) Supporting Document(s) SARS coronavirus 2 RNA Not Detected [facility] This lab was ordered by [facility] and reported by [facility]. ID Date Data Source [id number] 04/18/2020 07:13:34 PM EST [facility] Name Value Range Interpretation Code Description Data Paula rce(s) Supporting Document(s) &PDF [facility] [id number]/OJCkcZDFnr8JyOVdxBNb2AGhkPHYwQ5ZybDqvLVCID7XNZVqGZ7RNAvHeEJBc pYy GEhXG9YY9aTAFbmiNdhoI5aK3gQR8JSUL+Pf2ETM8jo6GaDBk5LOMsm3IwRCmmTFq6E1WjjJXmmbCuLr icoTMJYVGbCLTrK8vyyyk7bWMbXMd4Yj0LQxRsa9TfUKGaMBdMyt5x172yGsn+Q3MnCTLxgN8SR+RweC vPHz9ksQ2aldZo5tVUBfFBeoIbvwfXhIOz1bXem6k+ o8tsmlhA4J94R/Dvxwqk4kgVL9M+99bfOy6VvJE+//2vYazV+Uj9/E9dQkhV22Qjr4Jo+p4qRLBFS3Uf 6hu3BikaIr98VI39xe+dKml50rdsqYVb/eq5/43/wehgYLEX2i07sssfVdiM99Hj1biZjCLQcqpyozW6 wkX6oye8HMYYzZSorVDnaZ/Nn89Qal7OHMrgMwY1MP 4M2KbZ1NEZ/KxNVg5QMTFLJt6ebsEbL2LhQ04JJ3hlaS/zJUrk0PXWa/EfFpFXSDx0XAFyqZcJqg0aRl 7KVGxNJOSTAkNXACNUvDPIJdF6c3emtcUi79ekcyjqrjfNbFptrOLJgqnB2+yrJ0bFWKt7JjOGrusbpT eyhzbPB892OBJP3Ge/gO1UE2oqhV+Z+qkq1NzvIp8E vJEc2B5fR4v9TnkipxPAN/McCZeNpEOT4TpV2CydDK7MMPKb5ug4itrTNW6hzZdUnk2IPEy9788WkSI4 qgi/yX5TjOcXFrF0ctOSXqwgfYR4MNqpNkCOs8yH30tZ28ECe7kMcPM4L6owbXiQZwK+X2RMQNL4HZhQ kwmhj09kvvcqcBYKdFq2ZpOHtfLbUqryrru5VRmUGq [file] DQo+Rr0Em5RxlwG2hxDhBSvsRCQcWZ6UZQJGT6ZNYp== ID Date Data Source [id number] 03/14/2020 12:00:00 AM EST [facility] Name Value Range Interpretation Code Description Data Paula rce(s) Supporting Document(s) SARS-CoV-2 (COVID-19) RNA [Presence] in Respiratory specimen by SIMRAN with probe detection Not Detected [facility] This lab was ordered by [facility] and reported by [employer]. ID Date Data Source [id number] 02/21/2020 12:00:00 AM EST [facility] Name Value Range Interpretation Code Description Data Paula rce(s) Supporting Document(s) SARS-CoV-2 (COVID-19) RNA [Presence] in Respiratory specimen by SIMRAN with probe detection [facility] This lab was ordered by [facility] and reported by [employer] ID Date Data Source [id number] 02/08/2020 08:45:00 AM EST [facility] ([facility]) Name Value Range Interpretation Code Description Data Paula rce(s) Supporting Document(s) Laboratory test finding (navigational concept) Laboratory test result [facility] ([facility]) ID Date Data Source [id number] 02/08/2020 08:45:00 AM EST [facility] ([facility]) Name Value Range Interpretation Code Description Data Paula rce(s) Supporting Document(s) Pathology report final diagnosis Narrative Laboratory test result [facility] ([facility]) NEGATIVE FOR INTRAEPITHELIAL LESION OR M ALIGNANCY. Statement of adequacy [Interpretation] o f Cervical or vaginal smear or scraping by Cyto stain [facility]) Satisfactory for evaluation. Endocervic al and/or squamous metaplastic cells (endocervical component) are present. Laboratory test finding (navigational concept) Laboratory test result [facility] N95.9 Mat Puncher who read Cyto stain of Cervical or vaginal smear or scraping Laboratory test [facility] Bela Houser, Machine Scallop Cutter (ASCP) Microscopic observation [Identifier] in Unspecified sp ecimen by Other stain Laboratory test result [facility] ([facility]) Note: Laboratory test result [facility] The Pap smear is a screening test design ed to aid in the detection of premalignant and malignant conditions of the uterine cervix. It is not a diagnostic procedure and should not be used as the sole means of detecting cervical cancer. Both false-positive and false-negative reports do occur. Cytology report of Cervical or vaginal smear or scrapi ng Cyto stain.thin prep Laboratory test result [facility] ([facility]) This liquid based ThinPrep(R) pap test w as screened with the use of an image guided system. Human papilloma virus 16+18+31+33+35+39+ 45+51+52+56+58+59+68 DNA [Presence] in Cervix by Probe and signal amplification method Laboratory test result [facility] ([facility]) This nucleic acid amplification high-ris k HPV test detects thirteen high-risk types (16,18,31,33,35,39,45,51,52,56,58,59,68) without differentiation. EFFECTIVE MARCH 13, 2020 THIS TEST WILL BE MADE NON-ORDERABLE. SEE [facility] DIRECTORY OF SERVICES FOR ALTERNATIVES TO THE HIGH RISK HPV TEST. ANY PROFILE THAT INCLUDES THIS TEST WILL ALSO BE MADE NON-ORDERABLE. ID Date Data Source [id number] 12/14/2019 12:00:00 AM EDT [facility] Earnestine Pacheco Patient Name: EMMETT MODI [id number] [facility] Date of : 1960[place] [address] Date of Exam: 12/14/2019#: Fax: [phone] EXAM: MAMMO SCREENING WITH CADCLINICAL INFORMATION: Screening.Based on the personal and family history information your patient suppliedat the time of imaging, her lifetime risk of breast cancer estimated by theTyrer-Cuzick model is 7.1%. Given that this patient has less than 20% TCrisk score, no further medical management is currently recommended at thistime.Digital screening (2D) mammography was performed bilaterally in the CC andMLO projections. Add itionally, breast tomosynthesis (3D mammography) wasperformed bilaterally in the CC and MLO projections. Today's exam wascompared to the prior exam(s).By history, the patient has no complaints of a palpable breast abnormalityor other significant breast complaints.The patient states that a clinical breast exam was not performed.The breasts are unchanged in size and shape. There are no trudy- soft tissuedensities or spiculated masses. There is no internal architecturaldistortion. There are no suspicious trudy-calcific clusters. Skinthickening or nipple retraction is not present. Benign calcifications areagain seen bilaterally.The Volpara volumetric breast density category is A, the breasts are almostentirely fatty.IMPRESSION:BI-RADS Category 2 - Benign Finding(s). Stable mammogram. There is noevidence of malignant alteration of the breasts. Followup examinationrecommended in one year.This mammogram was read with the assistance of [employer], an FDAapproved computer aided detection system for mammography.Negative x-ray reports should not delay surgical consultation if a dominantor clinically suspicious mass is present.Not all breast cancers can be identified by mammography. Therefore, werecommend that you continue to perform regular breast self-examination andphysical examination and then promptly contact your physician of anyconcerns or changes.Adenosis and dense breasts may obscure an underlying neoplasm.SUSANNAH Cruz/Kanwal you for referring EMMETT MODI to our office.Electronically Signed - KAL HAND DO 12/14/19 16:10 Name Value Range Interpretation Code Description Data Paula rce(s) Supporting Document(s) ID Date Data Source [id number] 11/09/2019 09:03:00 AM EDT [facility] ([facility]) Name Value Range Interpretation Code Description Data Paula rce(s) Supporting Document(s) Folate Laboratory test [facility] FOLATE NORMAL RANGE NORMAL GREATER THAN 5.4 NG/ML INDETERMINATE 3.4-5.4 NG/ML DEFICIENT LESS THAN 3.4 NG/ML Vitamin B12 Level 1019 pg/mL [facility] ([facility]) VITAMIN B12 NORMAL RANGE NORMAL 247 - 911 PG/ML INDETERMINATE 211 - 246 PG/ML DEFICIENT LESS THAN 211 PG/ML ID Date Data Source [id number] 11/09/2019 09:03:00 AM EDT [facility] Name Value Range Interpretation Code Description Data Paula rce(s) Supporting Document(s) Retinol [Mass/volume] in Serum or Plasma 35.4 ug/dL 20.1-62.0 [facility] ([facility]) Reference intervals for vitamin A determ ined from [facility] internal studies. Individuals with vitamin A less than 20 ug/dL are considered vitamin A deficient and those with serum concentrations less than 10 ug/dL are considered severely deficient. . This test was developed and its performance characteristics determined by [facility]. It has not been cleared or approved by the Food and Drug Administration. Thiamine [Mass/volume] in Blood 137.3 nmol/L 66.5-200.0 [facility] ([facility]) Performed at: [address] [id number] General Laborer: Duglas Easton MD, Phone: [phone] Ferritin [Mass/volume] in Serum or Plasma 31 ng/mL 8-252 [facility] Iron [Mass/volume] in Serum or Plasma 148 ug/dL 50-170 [facility] ([facility]) ID Date Data Source [id number] 11/09/2019 09:02:00 AM EDT [facility] Name Value Range Interpretation Code Description Data Paula rce(s) Supporting Document(s) Glucose mean value [Mass/volume] in Blood Estimated fr om glycated hemoglobin 117 mg/dL 60-110 [facility] Hemoglobin A1c/Hemoglobin.total in Blood 5.7 g/dL 4.8-5.6 [facility] ([facility] Lab Result Notes: Pre-Diabetes 5.7 - 6.4 % Diabetes = or > 6.5% ID Date Data Source [id number] 11/09/2019 09:02:00 AM EDT [facility] Name Value Range Interpretation Code Description Data Paula rce(s) Supporting Document(s) Thyroxine (T4) free [Mass/volume] in Serum or Plasma 0.91 ng/dL 0.76- 1.46 [facility] ([facility] ID Date Data Source [id number] 11/09/2019 09:02:00 AM EDT [facility] Name Value Range Interpretation Code Description Data Paula rce(s) Supporting Document(s) Thyrotropin [Units/volume] in Serum or Plasma by Detec tion limit <= 0.05 mIU/L 4.58 uIU/mL 0.36-3.74 [facility] ([facility] ID Date Data Source [id number] 11/09/2019 07:57:00 AM EDT [facility] Name Value Range Interpretation Code Description Data Paula rce(s) Supporting Document(s) Calcidiol [Mass/volume] in Serum or Plasma 33.8 24.0-80.0 [facility]) This test was performed using [employer] I P Vitamin D immunoassay kit. Values obtained with different assay methods should not be used interchangeably. ID Date Data Source [id number] 11/09/2019 07:57:00 AM EDT [facility] Name Value Range Interpretation Code Description Data Paula rce(s) Supporting Document(s) Triglyceride [Mass/volume] in Serum or Plasma 92 mg/dL 30-150 [facility] ([facility]) Cholesterol [Mass/volume] in Serum or Plasma 234 mg/dL 131-200 [facility] ([facility]) Cholesterol in HDL [Mass/volume] in Serum or Plasma 100 mg/dL 35-60 [facility] ([facility]) Cholesterol in LDL [Mass/volume] in Serum or Plasma by calcu lation 116 CALC 50-159 [facility] ([facility]) ID Date Data Source [id number] 11/09/2019 07:57:00 AM EDT [facility] ([facility]) Name Value Range Interpretation Code Description Data Paula rce(s) Supporting Document(s) Glucose [Mass/volume] in Serum or Plasma 103 mg/dL 74-99 [facility] ([facility]) 100-125 mg/dL PRE-DIABETES/FASTING >126 mg/dL DIABETES/FASTING Urea nitrogen [Mass/volume] in Serum or Plasma 13 mg/dL 7-18 [facility] ([facility]) Sodium [Moles/volume] in Serum or Plasma 143 meq/L 136-145 [facility] ([facility]) Creatinine 0.8 mg/dL 0.6-1.3 [facility] ([facility]) Carbon dioxide, total [Moles/volume] in Serum or Plasma 29 meq/L 21 -32 [facility] ([facility]) Potassium [Moles/volume] in Serum or Plasma 3.8 meq/L 3.5-5.1 [facility] ([facility]) Chloride [Moles/volume] in Serum or Plasma 104 meq/L 98-107 [facility] ([facility]) Total Bilirubin 0.5 mg/dL 0.2-1.0 [facility] ([facility]) Alkaline phosphatase isoenzyme [Units/volume] in Serum or Pl asma 93 mg/dL 46-116 [facility] ([facility]) Calcium [Mass/volume] in Serum or Plasma 8.6 mg/dL 8.5-10.1 [facility] ([facility]) Alanine aminotransferase [Enzymatic activity/volume] in Seru m or Plasma 21 U/L 12-78 [facility] Albumin [Mass/volume] in Serum or Plasma 3.5 g/dL 3.4-5.0 [facility] Aspartate aminotransferase [Enzymatic activity/volume] in Serum or Plasma 20 U/L 15-37 [facility] ([facility] Glomerular filtration rate/1.73 sq M pre dicted among non-blacks [Volume Rate/Area] in Serum or Plasma by Creatinine-based formula (MDRD) Laboratory test result [facility] ([facility] ) A/G Ratio 1.09 CALC 1.00-1.90 [facility] Proteinase 3 Ab [Units/volume] in Serum 6.7 g/dL 6.4-8.2 [facility] ([facility] Glomerular filtration rate/1.73 sq M pre dicted among blacks [Volume Rate/Area] in Serum or Plasma by Creatinine-based formula (MDRD) Laboratory test result [facility] ([facility]) <content>CHRONIC KIDNEY DISEASE STAGING PER NKF</content>
<content></content>
<content>STAGE I & II GFR >= 60 NORMAL TO MILDLY DECREASED</content>
<content>STAGE III GFR 30-59 MODERATELY DECREASED</content>
<content>STAGE IV GFR 15-29 SEVERELY DECREASED</content>
<content>STAGE V GFR <15 VERY LITTLE GFR LEFT</content>
<content>ESRD GFR <15 ON ROD AND TUBE STRAIGHTENER</content>
<content></content> ID Date Data Source [id number] 11/09/2019 07:57:00 AM EDT [facility] ([facility] Name Value Range Interpretation Code Description Data Paula rce(s) Supporting Document(s) Leukocytes [#/volume] in Blood by Automated count 4.1 x10*3/UL 4.1-10 .9 [facility] Hematocrit [Volume Fraction] of Blood by Automated count 37.6 % 3 7.0-51.0 [facility] Hemoglobin [Mass/volume] in Blood 12.8 g/dL 12.0-18.0 [facility] ([facility]) Erythrocytes [#/volume] in Blood by Automated count 4.48 x10*6/UL 4.2 0-6.30 [facility] ([facility]) MCHC 34.1 g/dL 31.0-38.0 [facility] ([facility]) MCH 28.7 pg 26.0-32.0 [facility]) MCV 84.0 fL 80.0-97.0 [facility]) Platelets [#/volume] in Blood by Automated count 162 x10*3/UL 140-440 [facility] Erythrocyte distribution width [Ratio] by Automated count 12.9 % 11.6-13.7 [facility] ([facility]) MPV 10.1 FL 7.8-11.0 [facility]) Lymph % 37.1 % 10.0-58.5 [facility]) Neut % 55.7 % 37.0-92.0 [facility]) Mid % 7.2 % 1.7-9.3 [facility]) Lymph # 1.5 x10*3/UL 0.6-4.1 [facility] ([facility]) Neut # 2.3 x10*3/UL 2.0-7.8 [facility] ([facility]) Mid # 0.3 x10*3/UL 0.1-0.6 [facility] ([facility]) ID Date Data Source [id number] 05/04/2019 09:32:00 AM EST [facility] ([facility]) Name Value Range Interpretation Code Description Data Paula rce(s) Supporting Document(s) Glucose [Mass/volume] in Serum or Plasma 109 mg/dL 74-99 [facility] ([facility]) 100-125 mg/dL PRE-DIABETES/FASTING >126 mg/dL DIABETES/FASTING Urea nitrogen [Mass/volume] in Serum or Plasma 15 mg/dL 7-18 [facility] ([facility]) Creatinine 0.8 mg/dL 0.6-1.3 [facility] Sodium [Moles/volume] in Serum or Plasma 142 meq/L 136-145 [facility] ([facility]) Potassium [Moles/volume] in Serum or Plasma 4.3 meq/L 3.5-5.1 [facility] ([facility]) Calcium [Mass/volume] in Serum or Plasma 9.4 mg/dL 8.5-10.1 [facility] Carbon dioxide, total [Moles/volume] in Serum or Plasma 34 meq/L 21 -32 [facility] ([facility]) Chloride [Moles/volume] in Serum or Plasma 104 meq/L 98-107 [facility] ([facility]) Glomerular filtration rate/1.73 sq M pre dicted among non-blacks [Volume Rate/Area] in Serum or Plasma by Creatinine-based formula (MDRD) Laboratory test result [facility] ([facility] Glomerular filtration rate/1.73 sq M pre dicted among blacks [Volume Rate/Area] in Serum or Plasma by Creatinine-based formula (MDRD) Laboratory test result [facility] ([facility]) <content>CHRONIC KIDNEY DISEASE STAGING PER NKF</content>
<content></content>
<content>STAGE I & II GFR >= 60 NORMAL TO MILDLY DECREASED</content>
<content>STAGE III GFR 30-59 MODERATELY DECREASED</content>
<content>STAGE IV GFR 15-29 SEVERELY DECREASED</content>
<content>STAGE V GFR <15 VERY LITTLE GFR LEFT</content>
<content>ESRD GFR <15 ON ROD AND TUBE STRAIGHTENER</content>
<content></content> Procedure Vital Signs ID Date Data Source UNK Name Value Range Interpretation Code Description Data Source(s) Body temperature 96.6 [degF] 96.6 [degF] [facility] ([facility]) Body weight 98.885 kg 98.885 kg [facility] ([facility]) Body mass index (BMI) [Ratio] 41.2 kg/m2 41.2 k g/m2 [facility] ([facility]) Heart rate 81 /min 81 /min [facility] ([facility]) Diastolic blood pressure 86 mm[Hg] 86 mm[Hg] [facility] ([facility]) Systolic blood pressure 136 mm[Hg] 136 mm[Hg] [facility] Body weight 218.00 [lb_av] 218.00 [lb_av] [facility] ([facility]) Body height 61 [in_i] 61 [in_i] [facility] 5'1" Body mass index (BMI) [Ratio] 40.8 kg/m2 40.8 k g/m2 [facility] ([facility]) Oxygen saturation in Arterial blood by Pulse oximetry 98 % 98 % [facility] Body weight 216.00 [lb_av] 216.00 [lb_av] [facility] ([facility]) Body height 61 [in_i] 61 [in_i] [facility]) 5'1" Heart rate 82 /min 82 /min [facility] ([facility]) Diastolic blood pressure 84 mm[Hg] 84 mm[Hg] [facility]) Systolic blood pressure 130 mm[Hg] 130 mm[Hg] [facility] ([facility]) Body mass index (BMI) [Ratio] 40.6 kg/m2 40.6 k g/m2 [facility] ([facility]) Oxygen saturation in Arterial blood by Pulse oximetry 95 % 95 % [facility]) Body weight 215.00 [lb_av] 215.00 [lb_av] [facility] Body height 61 [in_i] 61 [in_i] [facility]) 5'1" Heart rate 66 /min 66 /min [facility] ([facility]) Diastolic blood pressure 78 mm[Hg] 78 mm[Hg] [facility] ([facility]) Systolic blood pressure 124 mm[Hg] 124 mm[Hg] [facility] ([facility]) Body mass index (BMI) [Ratio] 40.6 kg/m2 40.6 k g/m2 [facility] ([facility]) Oxygen saturation in Arterial blood by Pulse oximetry 97 % 97 % [facility] ([facility]) Body weight 215.00 [lb_av] 215.00 [lb_av] [facility] ([facility]) Body height 61 [in_i] 61 [in_i] [facility] ([facility]) 5'1" Heart rate 68 /min 68 /min [facility] ([facility]) Diastolic blood pressure 70 mm[Hg] 70 mm[Hg] [facility]) Systolic blood pressure 126 mm[Hg] 126 mm[Hg] [facility] ([facility]) Body mass index (BMI) [Ratio] 41.4 kg/m2 41.4 k g/m2 [facility] ([facility]) Body weight 219.00 [lb_av] 219.00 [lb_av] [facility] ([facility]) Body height 61 [in_i] 61 [in_i] [facility] ([facility]) 5'1" Heart rate 102 /min 102 /min [facility]) Diastolic blood pressure 70 mm[Hg] 70 mm[Hg] [facility] ([facility]) Systolic blood pressure 130 mm[Hg] 130 mm[Hg] [facility] ([facility]) Body mass index (BMI) [Ratio] 41.2 kg/m2 41.2 k g/m2 [facility] ([facility]) Body weight 218.00 [lb_av] 218.00 [lb_av] [facility] Body height 61 [in_i] 61 [in_i] [facility] ([facility]) 5'1" Heart rate 88 /min 88 /min [facility]) Diastolic blood pressure 68 mm[Hg] 68 mm[Hg] [facility] ([facility]) Systolic blood pressure 122 mm[Hg] 122 mm[Hg] [facility] ([facility]) Body mass index (BMI) [Ratio] 41.0 kg/m2 41.0 k g/m2 [facility] ([facility]) Oxygen saturation in Arterial blood by Pulse oximetry 98 % 98 % [facility] ([facility]) Air Body weight 217.00 [lb_av] 217.00 [lb_av] [facility] ([facility]) Body height 61 [in_i] 61 [in_i] [facility] ([facility]) 5'1" Heart rate 73 /min 73 /min [facility] ([facility]) Diastolic blood pressure 80 mm[Hg] 80 mm[Hg] [facility] ([facility]) Systolic blood pressure 122 mm[Hg] 122 mm[Hg] M [facility] ([facility])
--- NOTE | 2020-04-25 09:53 | ROOR ---
Patient Name: Bola Gould Procedure Date: 04/25/2020 9:30 AM Date of : 1960 Age: 60 Room: [facility] Gender: Female Note Status: Finalized Procedure: Total Colonoscopy to Cecum Indications: Screening for colorectal malignant neoplasm Providers: Shay Cline MD Referring MD: Earnetsine Mcpherson NP Requesting Provider: Medicines: Monitored Anesthesia Care Complications: No immediate complications. Procedure: Pre-Anesthesia Assessment: - The heart rate, respiratory rate, oxygen saturations, blood pressure, adequacy of pulmonary ventilation, and response to care were monitored throughout the procedure. The Colonoscope was introduced through the anus and advanced to the cecum, identified by appendiceal orifice and ileocecal valve. The colonoscopy was performed without difficulty. The patient tolerated the procedure well. The quality of the bowel preparation was excellent. Findings: The perianal and digital rectal examinations were normal. Non-bleeding internal hemorrhoids were found during retroflexion. The hemorrhoids were small and Grade I (internal hemorrhoids that do not prolapse). Multiple small-mouthed diverticula were found in the recto-sigmoid colon, sigmoid colon and descending colon. The exam was otherwise without abnormality on direct and retroflexion views. Impression: - Non-bleeding internal hemorrhoids. - Diverticulosis in the recto-sigmoid colon, in the sigmoid colon and in the descending colon. - The examination was otherwise normal on direct and retroflexion views. - No specimens collected. - The exam was otherwise normal to the cecum. Recommendation: - Patient has a contact number available for emergencies. The signs and symptoms of potential delayed complications were discussed with the patient. Return to normal activities tomorrow. Written discharge instructions were provided to the patient. - High fiber diet. - Discharge patient to home. - Continue present medications. - Repeat colonoscopy in 10 years for screening purposes. - Return to referring physician. - The findings and recommendations were discussed with the patient. Procedure Code(s): --- Professional --- 29606, Colonoscopy, flexible; diagnostic, including collection of specimen(s) by brushing or washing, when performed (separate procedure) Diagnosis Code(s): --- Professional --- Z12.11, Encounter for screening for malignant neoplasm of colon K64.0, First degree hemorrhoids K57.30, Diverticulosis of large intestine without perforation or abscess without bleeding CPT copyright 2019 [employer]. All rights reserved. The codes documented in this report are preliminary and upon child psychiatrist review may be revised to meet current compliance requirements. Shay Cline MD Shay Cline MD 04/25/2020 9:53:14 AM Electronically signed by Shay Cline MD Number of Addenda: 0 Note Initiated On: 04/25/2020 9:30 AM Estimated Blood Loss: Estimated blood loss: none.
[2020-04-25 10:10] VITALS: BP 165/76
== END 2020-04-25 10:21 | disposition home or self-care (01) ==
LOC: M OPP 07:53
PROVIDERS: ATTEND Internal Medicine Gastroenterology
DX: Z12.11 Encounter for screening for malignant neoplasm of colon (principal); K64.0 First degree hemorrhoids; K57.30 Diverticulosis of large intestine without perforation or abscess without bleeding; F41.0 Panic disorder [episodic paroxysmal anxiety]; F32.9 Major depressive disorder, single episode, unspecified; Z86.14 Personal history of Methicillin resistant Staphylococcus aureus infection; Z88.2 Allergy status to sulfonamides; Z79.899 Other long term (current) drug therapy; Z98.84 Bariatric surgery status

== ENCOUNTER → 2020-11-15 | Outpatient (REF) | payer BC ==
[~2020-11-15] MED LIST changes: +ASPI81TA26 PO; -LIDOCAINE 2% 100MG/5ML SDV (FOR ANES.) As Ordered ONE; -NS 1,000 ML IV ONE; -propofoL 200 MG/20 ML VIAL As Ordered ONE
== END ==
LOC: M LAB REF 16:28
PROVIDERS: ATTEND Nurse Practitioner Adult Health
DX: M25.561 Pain in right knee (principal); Z86.19 Personal history of other infectious and parasitic diseases

== ENCOUNTER → 2020-12-26 | Outpatient (CLI) | payer BC ==
[~2020-12-26] MED LIST changes: -IBUP200T45 PO; +IBUP200T46 PO
--- NOTE | 2020-12-26 08:48 | REP ---
INDICATION: SCREENING MAMMOGRAM. COMPARISON: Multiple TECHNIQUE: Digital screening mammography was carried out bilaterally in the CC and MLO projections using both 2D and 3D modalities and compared to the prior exams. By history, the patient has no complaints of a palpable breast abnormality or other significant breast complaints. FINDINGS: The breasts are unchanged in size and shape. No new nodular densities, spiculated lesions, or areas of internal architectural distortion have developed. No suspicious calcifications have developed. There is no skin thickening or nipple retraction. In the upper outer quadrant the left breast there is been a subtle increase in rather diffuse breast parenchymal density without a definable focal lesion. There are no other significant changes seen in either breast. The Volpara volumetric breast density pattern is b. IMPRESSION: BIRADS/ACR category 0 mammogram. Increased breast parenchymal density in the left breast as described above. I see that the patient underwent her 2nd COVID vaccination in her left arm last June. I am wondering if the finding today represents mild inflammatory changes. I will recommend spot compression views of the left breast upper outer quadrant with magnified technique to assess for the possibility of an underlying abnormality although none is seen on DBT imaging. Additionally, an ultrasound of the region may be necessary. This patient's Tyrer-Cuzick lifetime breast cancer risk assessment score is 7.7%. This mammogram was interpreted with the aid of an FDA-approved computer-aided detection system. The patient states she had a clinical breast exam in November 2020. The patient letter being requested is M0. RECOMMENDATION: As above <Electronically signed by Pantera Granger > 12/26/20 [id number]
== END ==
LOC: M WHC 06:56
PROVIDERS: ATTEND Nurse Practitioner Adult Health
DX: R92.2 Inconclusive mammogram (principal)

== ENCOUNTER → 2020-12-26 | Outpatient (CLI) | payer BC ==
--- NOTE | 2020-12-27 15:23 | SLEEPCENT ---
DATE: 12/26/2020 ORDERED BY: KILEY Bernal Nocturnal polysomnography was performed for the titration of pressure therapy in this patient with a clinical diagnosis of obstructive sleep apnea syndrome supported by home testing revealing a respiratory event index of 19.4. For testing, a ResMed F30 medium size mask was used, 4 cm of water pressure were applied to the circuit and the lights were extinguished. Eight hours and 25 minutes of data were reviewed. There were 404.5 minutes of sleep identified. Sleep latency was prolonged at 68 minutes. REM latency was mildly prolonged at 119 minutes. Sleep architecture improved with pressure therapy, and there 2 REM cycles noted. Overall sleep efficiency was 80.9%. The electrocardiogram showed a sinus rhythm with an average heart rate of 65 beats per minute. EEG showed coarsening in background. No focal events were identified. There were normal waveforms for wake and sleep. Respiratory events were fully palliated with CPAP at a pressure of 8. There was some scattered limb activity, only 1 train of events. Limb movement arousal index on this study 15.6. IMPRESSIONS: 1. Obstructive sleep apnea syndrome (G47.33). 2. Possible periodic limb movement disorder (G47.61). Limb movement arousal index 15.6. RECOMMENDATION: Initiation of pressure therapy at 8 cm of water should be sufficient to address the patient's obstructive respiratory events. Should sleep symptoms persist, interventions to reduce the frequency of arousal from limb activity may be helpful. cc: Earnestine Castillo NP
== END ==
LOC: M SLEEP 20:00
PROVIDERS: ATTEND Physician Assistant
DX: G47.33 Obstructive sleep apnea (adult) (pediatric) (principal)

== ENCOUNTER → 2021-01-30 | Outpatient (CLI) | payer BC ==
--- NOTE | 2021-01-30 09:44 | REP ---
INDICATION: LEFT BREAST ADD VIEWS. COMPARISON: 12/26/2020 as well as other prior exams. TECHNIQUE: Multiple additional views of the left breast are performed including a left mL tomographic sequence. FINDINGS: The previously noted ill-defined increased density in the left axillary tail region has resolved, likely representing resolution of inflammatory change. There is no persistent density, mass or architectural distortion. IMPRESSION: BIRADS/ACR category 1, negative. The ill-defined parenchymal density in the upper outer quadrant/axillary tail of the left breast has resolved. No persistent abnormality seen. This mammogram was interpreted with the aid of an FDA-approved computer-aided detection system. The patient letter being requested is M 1. RECOMMENDATION: Repeat screening mammography recommended 1 year (for women over 40). <Electronically signed by Mike Evans > 01/30/21 [id number]
== END ==
LOC: M WHC 07:58
PROVIDERS: ATTEND Nurse Practitioner Adult Health
DX: R92.2 Inconclusive mammogram (principal); N63.32 Unspecified lump in axillary tail of the left breast
CPT/HCPCS: 77065; G0279

== ENCOUNTER → 2021-02-14 | Outpatient (REF) | LOC: M LABSMTC 12:19 | PROVIDERS: ATTEND Pediatrics | DX: Z20.822 Contact with and (suspected) exposure to COVID-19 (principal) ==

== ENCOUNTER → 2021-03-14 | Outpatient (REF) | LOC: M LABSMTC 12:02 | PROVIDERS: ATTEND Pediatrics | DX: Z11.52 Encounter for screening for COVID-19 (principal) ==

== ENCOUNTER → 2021-04-18 | Outpatient (REF) ==
[~2021-04-18] MED LIST changes: +FLUO-96 PO; -FLUO20CA20 PO
== END ==
LOC: M LABSMTC 12:09
PROVIDERS: ATTEND Pediatrics
DX: Z20.822 Contact with and (suspected) exposure to COVID-19 (principal)

== ENCOUNTER → 2021-06-05 | Outpatient (REF) | payer BC ==
[2021-06-05 12:49] LABS: IRON (FE) 78 UG/DL (50-170)
[2021-06-05 13:01] LABS: VITAMIN B12 LEVEL 1184 PG/ML (247-911)
== END ==
LOC: M LAB REF 12:21
PROVIDERS: ATTEND Nurse Practitioner Adult Health
DX: D48.5 Neoplasm of uncertain behavior of skin (principal)

== ENCOUNTER → 2021-12-27 | Outpatient (CLI) | payer OTHER | LOC: M WHC 08:43 | PROVIDERS: ATTEND Nurse Practitioner Adult Health | DX: Z12.31 Encounter for screening mammogram for malignant neoplasm of breast (principal) ==

== ENCOUNTER → 2023-02-25 | Outpatient (REF) | payer OTHER | LOC: M SFHCWAGY 13:07 | PROVIDERS: ATTEND Nurse Practitioner Family | DX: Z12.4 Encounter for screening for malignant neoplasm of cervix (principal); N85.8 Other specified noninflammatory disorders of uterus ==

== ENCOUNTER → 2023-02-25 | Outpatient (CLI) | payer OTHER, SELFPAY | LOC: M WHC 08:37 | PROVIDERS: ATTEND Nurse Practitioner Family | DX: Z12.31 Encounter for screening mammogram for malignant neoplasm of breast (principal) ==

== ENCOUNTER → 2023-03-13 | Outpatient (CLI) | payer OTHER | LOC: M WHC 08:12 | PROVIDERS: ATTEND Nurse Practitioner Family | DX: Z13.820 Encounter for screening for osteoporosis (principal); M85.89 Other specified disorders of bone density and structure, multiple sites ==

== ENCOUNTER → 2024-03-01 | Outpatient (CLI) | payer OTHER | LOC: M WHC 09:02 | PROVIDERS: ATTEND Nurse Practitioner Family | DX: Z12.31 Encounter for screening mammogram for malignant neoplasm of breast (principal); R92.313 Mammographic fatty tissue density, bilateral breasts ==

== ENCOUNTER → 2025-03-02 | Outpatient (CLI) | payer OTHER | LOC: M WHC 08:16 | PROVIDERS: ATTEND Nurse Practitioner Family | DX: Z12.31 Encounter for screening mammogram for malignant neoplasm of breast (principal); R92.313 Mammographic fatty tissue density, bilateral breasts ==